=== PATIENT | female | born 1990 | race Two or more races ===

== ENCOUNTER 2018-08-04 00:19 | Emergency (ER) | payer SELFPAY ==
[~2018-08-04] VITALS: Ht 152.4 cm; Wt 52.0 kg
[2018-08-04] MEDS ORDERED: SODIUM CHLORIDE 0.9% 1,000 ML IV ONE (01:47)
[2018-08-04] MEDS ORDERED: ONDANSETRON HCL 4MG/2ML VIAL IV STA (01:47)
[2018-08-04 02:20] LABS: HEMATOCRIT. 38.3 % (36.0-48.0); MEAN CORPUSCULAR VOLUME 85.1 fL (81.0-99.0); PLATELET 298 x1000/uL (130-400)
[2018-08-04 02:25] LABS: CHLORIDE 107 mEq/L (98-107)
[2018-08-04 02:26] LABS: HCG SCREEN NEGATIVE
[2018-08-04 02:29] LABS: ETHANOL BLOOD < 10 mg/dL
[2018-08-04 03:34] LABS: CLARITY URINE TURBID (CLEAR); COLOR URINE YELLOW (YELLOW); KETONES URINE TRACE (NEGATIVE); LEUKOCYTE ESTERASE URINE 3+ (NEGATIVE); NITRITE URINE NEGATIVE (NEGATIVE); OCCULT BLOOD URINE 3+ (NEGATIVE); PROTEIN URINE 1+ (NEGATIVE); SPECIFIC GRAVITY URINE 1.009 (1.005-1.030); UROBILINOGEN URINE 0.2 E.U./dL (0.2-1.0)
[2018-08-04 04:00] LABS: *AMPHETAMINES SCREEN URINE NEGATIVE (NEGATIVE); *BENZODIAZEPINES SCREEN URINE NEGATIVE (NEGATIVE); *COCAINE SCREEN URINE NEGATIVE (NEGATIVE); METHADONE URINE SCREEN NEGATIVE (NEGATIVE); OPIATES URINE SCREEN NEGATIVE (NEGATIVE)
[2018-08-04 04:01] LABS: *BARBITURATES SCREEN URINE NEGATIVE (NEGATIVE); PHENCYCLIDINE URINE SCREEN NEGATIVE (NEGATIVE)
[2018-08-04 04:04] LABS: CANNABINOID URINE SCREEN PRESUMTIVE POSITIVE (NEGATIVE)
[2018-08-04 05:03] VITALS: BP 96/60
[2018-08-04 05:07] LABS: PLATELET ESTIMATE NORMAL
== END 2018-08-04 05:24 | disposition home or self-care (01) ==
LOC: ER 00:19
DX: T51.0X1A Toxic effect of ethanol, accidental (unintentional), initial encounter (principal); N39.0 Urinary tract infection, site not specified; F12.10 Cannabis abuse, uncomplicated; F17.200 Nicotine dependence, unspecified, uncomplicated; Y92.89 Other specified places as the place of occurrence of the external cause
CPT/HCPCS: 36415; 80053; 80305; 81003; 83690; 84703; 85025; 87086; 93005; 96361; 96374; 99285; G0482; J2405; J7030; Z7610